=== PATIENT | female | born 1960 | race African-American/Black ===

== ENCOUNTER 2017-02-18 19:28 | Emergency (ER) | payer MEDICAID, OTHER ==
[~2017-02-18] VITALS: Ht 167.6 cm; Wt 80.0 kg
[2017-02-18 19:39] VITALS: BP 148/94
[2017-02-18 21:08] LABS: BASOPHILS % 0.8 % (0.0-2.0); HEMATOCRIT. 38.7 % (36.0-48.0); HEMOGLOBIN. 12.8 g/dL (12.0-16.0); LYMPHOCYTES % 43.9 % (20.0-50.0); MEAN CORPUSCULAR HEMOGLOBIN 34.8 pg (28.0-32.0); MEAN CORPUSCULAR VOLUME 105.5 fL (81.0-99.0); MEAN PLATELET VOLUME 8.7 fl (7.4-10.4); NEUTROPHILS % 46.3 % (40.0-76.0); PLATELET 154 x1000/uL (130-400); RED BLOOD CELL COUNT 3.67 mill/uL (4.2-5.4); RED CELL DISTRIBUTION WIDTH 13.3 % (11.6-14.6)
[2017-02-18 21:21] LABS: CARBON DIOXIDE 28 mEq/L (21-32); CHLORIDE 109 mEq/L (98-107)
[2017-02-18 21:23] LABS: ETHANOL BLOOD 399 mg/dL
== END 2017-02-18 21:51 | disposition left against medical advice (07) ==
LOC: ER 19:28
DX: F10.121 Alcohol abuse with intoxication delirium (principal); Y90.8 Blood alcohol level of 240 mg/100 ml or more; R74.8 Abnormal levels of other serum enzymes
CPT/HCPCS: 36415; 80053; 85025; 99284; G0482

== ENCOUNTER 2017-07-13 06:00 | Emergency (ER) | payer MEDICAID ==
[~2017-07-13] VITALS: Ht 170.2 cm; Wt 87.0 kg
[2017-07-13] MEDS ORDERED: KETOROLAC 60MG/2ML VIAL IM ONE (06:45)
[2017-07-13 06:57] VITALS: BP 147/89
== END 2017-07-13 06:58 | disposition home or self-care (01) ==
LOC: ER 06:06
DX: M25.512 Pain in left shoulder (principal); R20.0 Anesthesia of skin; F10.10 Alcohol abuse, uncomplicated; Y90.9 Presence of alcohol in blood, level not specified
CPT/HCPCS: 99283

== ENCOUNTER 2017-10-30 20:42 | Emergency (ER) | payer MEDICAID ==
[~2017-10-30] VITALS: Ht 167.6 cm; Wt 73.0 kg
[2017-10-30 20:59] VITALS: BP 129/100
== END 2017-10-30 23:00 | disposition left against medical advice (07) ==
LOC: ER 21:16
DX: Z53.21 Procedure and treatment not carried out due to patient leaving prior to being seen by health care provider (principal); F32.9 Major depressive disorder, single episode, unspecified